=== PATIENT | female | born 2000 | race Hispanic/Latino ===

== ENCOUNTER 2024-02-19 01:38 | Observation (INO) | payer SELFPAY ==
[~2024-02-19] VITALS: Ht 165.1 cm; Wt 77.1 kg
[2024-02-19 02:01] LABS: BASOPHILS # (AUTO) 0.03 K/uL (0.00-0.20); BASOPHILS % (AUTO) 0.2 % (0.0-5.0); EOSINOPHILS # (AUTO) 0.13 K/uL (0.00-0.70); EOSINOPHILS % (AUTO) 0.8 % (0.0-8.0); HEMATOCRIT 41.7 % (36-48); IMMATURE GRANULOCYTE ABSOLUTE 0.05 K/uL (0-1); LYMPHOCYTES # (AUTO) 1.2 K/uL (1.0-4.8); LYMPHOCYTES % (AUTO) 7.1 % (21.0-51.0); MEAN CORPUSCULAR HEMOGLOBIN 28.5 pg (27.0-33.0); MEAN CORPUSCULAR HGB CONC 33.8 g/dL (32.0-36.0); MEAN CORPUSCULAR VOLUME 84.2 fL (79-99); MONOCYTES # (AUTO) 1.1 K/uL (0.1-1.0); MONOCYTES % (AUTO) 6.5 % (3.0-13.0); NEUTROPHILS # (AUTO) 13.9 K/uL (1.8-7.7); NEUTROPHILS % (AUTO) 85.1 % (40.0-77.0); PLATELET COUNT (AUTO) 280 K/uL (130-400); RED BLOOD CELL COUNT(AUTO) 4.95 MIL/uL (4.00-5.50); RED CELL DISTRIBUTION WIDTH 13.2 % (11.0-15.5); WHITE BLOOD COUNT (AUTO) 16.3 K/uL (4.8-10.8)
[2024-02-19 02:14] LABS: CREATININE 0.8 mg/dL (0.5-1.0); POTASSIUM 3.9 mmol/L (3.5-5.1)
[2024-02-19 02:18] LABS: BILIRUBIN,TOTAL 0.2 mg/dL (0.2-1.0); TOTAL PROTEIN, SERUM 8.5 g/dL (6.0-8.3)
[2024-02-19] MEDS: 0.9%NACL 1000ML 1,000 ML IV ONE (02:44)
[2024-02-19] MEDS: cefTRIAXone 1G VIAL IVPB ONE (02:44)
[2024-02-19] MEDS: ONDANSETRON 4MG INJ IVP ONE (02:44)
[2024-02-19] MEDS: MORPHINE 4 MG SYG IVP ONE (02:45)
[2024-02-19] MEDS: cefTRIAXone 1G VIAL ONE (02:48)
[2024-02-19] MEDS ORDERED: IOHEXOL-350 75 ML VIAL IV ONE (02:54)
[2024-02-19] MEDS: 0.9%NACL 1000ML 2,313 ML IV ONE (04:21)
[2024-02-19 05:40] LABS: APPEARANCE,URINE CLEAR (CLEAR); BILIRUBIN,URINE NEGATIVE (NEGATIVE); COLOR,URINE COLORLESS (YELLOW); GLUCOSE, URINE (UA) NEGATIVE (NEGATIVE); KETONES,URINE NEGATIVE (NEGATIVE); LEUKOCYTE ESTERASE ,URINE NEGATIVE Leu/uL (NEGATIVE); NITRATE,URINE NEGATIVE (NEGATIVE); OCCULT BLOOD,URINE LARGE (NEGATIVE); PH,URINE 6.5 (5.0-8.0); PROTEIN,URINE NEGATIVE (NEGATIVE); UROBILINOGEN,URINE 0.2 mg/dL (0.2-1.0)
[2024-02-19 05:41] LABS: ADD UA MICROSCOPIC YES
[2024-02-19 05:42] LABS: HCG,QUALITATIVE URINE NEGATIVE (NEGATIVE)
[2024-02-19 05:44] LABS: BACTERIA,URINE RARE /HPF (None Seen)
[2024-02-19 05:47] LABS: AMPHET/METH SCREEN,URINE NEGATIVE (NEGATIVE); BARBITURATE SCREEN, URINE NEGATIVE (NEGATIVE); BENZODIAZEPINES SCREEN,URINE NEGATIVE (NEGATIVE); CANNABINOID SCREEN,URINE NEGATIVE (NEGATIVE); COCAINE SCREEN,URINE NEGATIVE (NEGATIVE); OPIATE SCREEN,URINE NEGATIVE (NEGATIVE); PHENCYCLIDINE SCREEN,URINE NEGATIVE (NEGATIVE)
[2024-02-19] MEDS ORDERED: ONDANSETRON 4MG INJ IVP PRN (09:00)
[2024-02-19] MEDS ORDERED: acetaMINOPHEN 325 MG TAB PO PRN (09:00)
[2024-02-19] MEDS: ZOSYN 3.375GM +NS 50ML IV SCH (09:32)
[2024-02-19] MEDS: PANTOPRAZOLE 40 MG/VIAL IVP SCH (09:32)
[2024-02-19] MEDS: KETOROLAC 15MG/ML VIAL (15MG/ML) IV PRN (09:33)
[2024-02-19] MEDS: 0.9%NACL 1000ML 1,000 ML IV SCH (09:33)
[2024-02-19 11:30] VITALS: BP 117/60; PULSE 84; RESP 18
[2024-02-19 16:00] VITALS: BP 115/60; PULSE 89; RESP 14
[2024-02-19 19:00] VITALS: BP 113/66; PULSE 94; RESP 14
[2024-02-19 20:00] VITALS: O2SAT 99
[2024-02-19 23:00] VITALS: BP 117/68; PULSE 79; RESP 14
[2024-02-20 03:00] VITALS: BP 115/66; PULSE 71; RESP 14
[2024-02-20 08:00] VITALS: BP 113/68; PULSE 68; RESP 16; O2SAT 100
[2024-02-20 11:22] VITALS: BP 121/54; PULSE 66; RESP 16
[2024-02-20] MEDS: POLYETHYLENE GLYCOL 3350 17 GM POWD.PACK PO ONE (15:51)
[2024-02-20 16:00] VITALS: BP 122/74; PULSE 71; RESP 17
[2024-02-20 18:31] LABS: BASOPHILS # (AUTO) 0.01 K/uL (0.00-0.20); BASOPHILS % (AUTO) 0.2 % (0.0-5.0); EOSINOPHILS # (AUTO) 0.12 K/uL (0.00-0.70); EOSINOPHILS % (AUTO) 2.8 % (0.0-8.0); HEMATOCRIT 33.5 % (36-48); IMMATURE GRANULOCYTE ABSOLUTE 0.01 K/uL (0-1); LYMPHOCYTES # (AUTO) 1.4 K/uL (1.0-4.8); LYMPHOCYTES % (AUTO) 32.4 % (21.0-51.0); MEAN CORPUSCULAR HEMOGLOBIN 29.3 pg (27.0-33.0); MEAN CORPUSCULAR HGB CONC 34.3 g/dL (32.0-36.0); MEAN CORPUSCULAR VOLUME 85.2 fL (79-99); MONOCYTES # (AUTO) 0.6 K/uL (0.1-1.0); MONOCYTES % (AUTO) 14.4 % (3.0-13.0); NEUTROPHILS # (AUTO) 2.2 K/uL (1.8-7.7); PLATELET COUNT (AUTO) 209 K/uL (130-400); RED BLOOD CELL COUNT(AUTO) 3.93 MIL/uL (4.00-5.50); RED CELL DISTRIBUTION WIDTH 13.2 % (11.0-15.5); WHITE BLOOD COUNT (AUTO) 4.3 K/uL (4.8-10.8)
[2024-02-20 20:00] VITALS: BP 124/78; PULSE 64; RESP 18; O2SAT 97
[2024-02-21] VITALS: BP 130/77; PULSE 70; RESP 17
[2024-02-21 04:00] VITALS: BP 132/79; PULSE 65; RESP 17
[2024-02-21 05:32] LABS: ALBUMIN 3.2 g/dL (3.5-5.0); BILIRUBIN,TOTAL 0.4 mg/dL (0.2-1.0); CREATININE 0.7 mg/dL (0.5-1.0); POTASSIUM 3.5 mmol/L (3.5-5.1)
[2024-02-21 07:34] VITALS: BP 144/70; PULSE 48; RESP 18
[2024-02-21 08:00] VITALS: O2SAT 99
[2024-02-21 11:43] VITALS: BP 120/66; PULSE 64; RESP 18
== END 2024-02-21 15:25 | disposition home or self-care (01) ==
LOC: EDH 01:38 → INTOOBSV 01:39 → EDHIP 01:39 → UNDOADMIN 08:38 → 3CH 09:41
PROVIDERS: ADMIT Internal Medicine Sleep Medicine; ATTEND Internal Medicine Sleep Medicine
DX: K52.9 Noninfective gastroenteritis and colitis, unspecified (principal); R65.10 Systemic inflammatory response syndrome (SIRS) of non-infectious origin without acute organ dysfunction; R11.2 Nausea with vomiting, unspecified; D72.829 Elevated white blood cell count, unspecified; Z79.899 Other long term (current) drug therapy; Z98.890 Other specified postprocedural states
CPT/HCPCS: 96365; 96366 ×3; 96367; 99284; 80053 ×2; 80305; 84703; 83690; 85025 ×2; 87040; 87086; 83605 ×2; 81001; 81025; 36415 ×3; 74177; 96375; 84145; 96361; 83735; G0378 ×61; J7030 ×3; J0696; J2405; J2270; J2543 ×7; J2470 ×3; J1885 ×5; Q9967; 96374